=== PATIENT | male | born 1995 | race Caucasian/White ===

== ENCOUNTER 2017-04-11 12:16 | Emergency (ER) | payer OTHER ==
[2017-04-11 15:07] VITALS: BP 128/75
--- NOTE | 2017-04-11 17:01 | UC ---
Niles Vega Stephanie, scribed for Manuel Wheat MD on 04/11/17 at 1524 . General HPI - HPI Summary HPI Summary: The pt is a 21 y/o M presenting to with c/o decreased energy that began on . Symptoms include weight gain, body aches, nausea, sleep disturbances and blood in rectum with wiping. The pt reports GARCIA yesterday but is not experiencing a GARCIA today. Symptoms became worse last night. Pt denies fever and chills. - History of Current Complaint Chief Complaint: UCGeneralIllness Stated Complaint: TIRED HEADACHE Time Seen by Provider: 04/11/17 14:39 Hx Obtained From: Patient Onset/Duration: Lasting Weeks - 2, Still Present Pain Radiates to: none Aggravating: nothing Alleviating: nothing Associated Signs & Symptoms: Positive: Other - weight gain, body aches, nausea, sleep disturbances and blood in rectum with wiping. - Allergy/Home Medications Allergies/Adverse Reactions: Allergies Allergy/AdvReac Type Severity Reaction Status Date / Time No Known Allergies Allergy Verified 04/11/17 12:40 Home Medications: Home Medications Escitalopram (NF) [Lexapro 10 mg (NF)] 1 tab PO DAILY 04/11/17 [History Confirmed 04/11/17] Propranolol HCl [Propranolol HCl ER] 04/11/17 [History] PMH/Surg Hx/FS Hx/Imm Hx Previously Healthy: Yes Psychological History: Depression - Surgical History Surgical History: None - Family History Known Family History: Positive: Cardiac Disease - paternal, Diabetes - maternal , Other - hypothyroidism, depression, anxiety - Social History Occupation: Student Lives: Dormitory/Roommates Alcohol Use: Occasionally Substance Use Type: Marijuana Substance Use Comment - Amount & Last Used: once weekly Smoking Status (MU): Former Smoker - Immunization History Most Recent Influenza Vaccination: none Review of Systems Constitutional: Other - weight gain, decreased energy, sleep disturbances Skin: Negative Eyes: Negative ENT: Negative Respiratory: Negative Cardiovascular: Negative Gastrointestinal: Nausea, Other - blood on rectum Genitourinary: Negative Motor: Negative Neurovascular: Negative Musculoskeletal: Negative Neurological: Negative Psychological: Negative All Other Systems Reviewed And Are Negative: Yes Physical Exam Triage Information Reviewed: Yes Vital Signs: Initial Vital Signs Temp 98.8 F 04/11/17 12:34 Pulse 97 01/21/18 12:34 Resp 14 04/11/17 12:34 BP 122/81 04/11/17 12:34 Pulse Ox 98 04/11/17 12:34 Vital Signs Reviewed: Yes - Additional Comments General: well-appearing, no pain distress Skin: warm, color reflects adequate perfusion, dry Head: normal Eyes: EOMI, ADRIEL ENT: normal Neck: supple, nontender, thyroid nml. Respiratory: CTA, breath sounds present Cardiovascular: RRR Abdomen: soft, nontender Bowel: present Musculoskeletal: normal, strength/ROM intact Neurological: normal, sensory/motor intact, A&O x3 Psychological: affect/mood appropriate Course/Dx - Course Course Of Treatment: Medications reviewed. LABS ORDERED CRP, CBC, CMP, ESR, TSH , MONOSPOT. WILL F/U WITH [facility]. - Differential Dx - Multi-Symptom Provider Diagnoses: FATIGUE Discharge - Discharge Plan Condition: Stable Disposition: HOME Patient Education Materials: Fatigue (ED) Referrals: [facility] @ [facility] [Outside] No Primary Care Phys,[facility] [Primary Care Provider] - Additional Instructions: FOLLOW UP WITH YOUR DOCTOR. DISCUSS THE LAB RESULTS WITH YOUR DOCTOR AT [facility]. GET RECHECKED FOR ANY WORSENING OF YOUR CONDITION OR QUESTIONS OR CONCERNS. The documentation as recorded by the Niles aguayo Stephanie accurately reflects the service I personally performed and the decisions made by me, Manuel Wheat MD.
[2017-04-12 10:58] LABS: ABS Basophils 0 10^3/ul (0-0.2); ABS Eosinophils 0.1 10^3/ul (0-0.6); ABS Lymphocytes 1.7 10^3/ul (1.0-4.8); ABS Monocytes 0.4 10^3/ul (0-0.8); ABS Neutrophils 2.6 10^3/ul (1.5-7.7); ABS Nucleated RBC 0 10^3/ul; Eosinophil % 2.2 % (0-6); Hematocrit 48 % (42-52); Hemoglobin 16.3 g/dl (14.0-18.0); Mean Corpuscular HGB Conc 34 g/dl (31-36); Mean Corpuscular Hemoglobin 31 pg (27-31); Mean Corpuscular Volume 89 fL (80-94); Mean Platelet Volume 9 um3 (7.4-10.4); Nucleated Red Blood Cells % 0.3; Platelet Count 199 10^3/ul (150-450); Red Blood Count 5.35 10^6/ul (4.0-5.4); Red Cell Distribution Width 13 % (10.5-15); White Blood Count 4.9 10^3/ul (3.5-10.8)
[2017-04-12 11:41] LABS: EGFR Non-African American 99.9 (>60)
--- NOTE | 2017-04-12 17:07 | UC ---
- Progress Note Progress Note: Call patient let him know his TSH was slightly elevated , and his total bilirubin was elevated as well---assure he has made follow up arrangement with [facility]
== END 2017-04-11 15:05 | disposition home or self-care (01) ==
LOC: UCEAST 12:16
DX: R53.83 Other fatigue (principal); R63.5 Abnormal weight gain; M79.1 Myalgia; R11.0 Nausea; K62.5 Hemorrhage of anus and rectum; F32.9 Major depressive disorder, single episode, unspecified; F12.90 Cannabis use, unspecified, uncomplicated; Z87.891 Personal history of nicotine dependence
CPT/HCPCS: 36415; 80053; 84443; 85025; 85652; 86140; 86308; 86664; 86665; 99202; G0463

== ENCOUNTER 2017-05-25 13:55 | Emergency (ER) | payer BC ==
--- NOTE | 2017-05-25 14:10 | ED ---
Psychiatric Complaint - HPI Summary HPI Summary: 21 male presents to ED with complaints of feeling very depression, spiraling down, and some vague thoughts of suicide. States symptoms began to worsen the past week. States he has been suffering from depression since eighth grade however recently started on lexapro 20mg in December of 2016. States it has been working well until this past week. States he has had some increased stress with finishing his school work and "isn't the greatest student" States he has had decreased libido and no interest in doing anything. States he went to [employer] to "get away" but decided he had to come to the ER because he knew he was at his lowest point. No suicidal attempts or homicidal thoughts. Suicidal without plan. No other PMHx. No other complaints and feels well otherwise. Does see outpatient psychiatrist biweekly, however latest appointment got cancelled due to weather. No hallucinations or hearing things. No alcohol or drug use. Has been taking his medication appropriately. - History Of Current Complaint Chief Complaint: EDMentalHealth Time Seen by Provider: 05/25/17 14:04 Hx Obtained From: Patient Onset/Duration: Gradual Onset, Lasting Weeks, Still Present, Worse Since Timing: Constant Severity Initially: Moderate Severity Currently: Severe Character: Depressed Aggravating Factor(s): Recent Stress Alleviating Factor(s): Nothing Associated Signs And Symptoms: Positive: Sleep Disturbance, Appetite Change, Social Withdrawal Has Suicidal: Reports: Thoughts. Denies: With A Plan Has Homicidal: Denies: Thoughts, With A Plan Recent Stressor(s): school, [employer] student - Allergies/Home Medications Allergies/Adverse Reactions: Allergies Allergy/AdvReac Type Severity Reaction Status Date / Time No Known Allergies Allergy Verified 05/25/17 17:02 Home Medications: Home Medications Escitalopram (NF) [Lexapro 20 mg (NF)] 20 mg PO DAILY 05/25/17 [History Confirmed 05/25/17] diPHENhydraMINE PO* [Benadryl PO 25 MG TAB*] 50 mg PO BEDTIME PRN 05/25/17 [ History Confirmed 05/25/17] PMH/Surg Hx/FS Hx/Imm Hx Endocrine/Hematology History: Denies: Hx Anticoagulant Therapy, Hx Diabetes Cardiovascular History: Denies: Hx Hypertension Respiratory History: Denies: Hx Asthma - Surgical History Surgery Procedure, Year, and Place: n/a - Immunization History Immunizations Up to Date: Yes Infectious Disease History: No Infectious Disease History: Denies: Traveled Outside the [place] in Last 30 Days - Family History Known Family History: Positive: Cardiac Disease - paternal, Diabetes - maternal , Other - hypothyroidism, depression, anxiety - Social History Alcohol Use: Occasionally Substance Use Type: Reports: Marijuana Substance Use Comment - Amount & Last Used: once weekly Smoking Status (MU): Former Smoker Review of Systems Constitutional: Negative Cardiovascular: Negative Respiratory: Negative Neurological: Negative Positive: Depressed All Other Systems Reviewed And Are Negative: Yes Physical Exam Triage Information Reviewed: Yes Vital Signs On Initial Exam: Initial Vitals Temp Pulse Resp BP Pulse Ox 98.7 F 90 20 133/70 83 05/25/17 13:58 05/25/17 13:58 05/25/17 13:58 05/25/17 13:58 05/25/17 13:58 Vital Signs Reviewed: Yes Appearance: Positive: Well-Appearing, No Pain Distress, Well-Nourished Skin: Positive: Warm, Skin Color Reflects Adequate Perfusion, Dry. Negative: Cold, Numb, Cyanosis @, Pale, Erythema @ Head/Face: Positive: Normal Head/Face Inspection Eyes: Positive: Normal, EOMI, ADRIEL, Conjunctiva Clear ENT: Positive: Normal ENT inspection, Hearing grossly normal, Pharynx normal, TMs normal, Uvula midline Neck: Positive: Supple, Nontender Respiratory/Lung Sounds: Positive: Clear to Auscultation, Breath Sounds Present. Negative: Rales, Rhonchi, Wheezes Cardiovascular: Positive: Normal, RRR, Pulses are Symmetrical in both Upper and Lower Extremities. Negative: Murmur, Rub Abdomen Description: Positive: Nontender, Soft Bowel Sounds: Positive: Present Musculoskeletal: Positive: Normal, Strength/ROM Intact Neurological: Positive: Normal, Sensory/Motor Intact, Alert, Oriented to Person Place, Time Psychiatric: Positive: Depressed - Earl Coma Scale Best Eye Response: 4 - Spontaneous Best Motor Response: 6 - Obeys Commands Best Verbal Response: 5 - Oriented Coma Scale Total: 15 Diagnostics - Vital Signs Vital Signs Temp Pulse Resp BP Pulse Ox 05/25/17 13:58 98.7 F 90 20 133/70 83 - Laboratory Result Diagrams: 05/25/17 14:16 05/25/17 14:16 Lab Statement: Any lab studies that have been ordered have been reviewed, and results considered in the medical decision making process. Course/Dx - Course Course Of Treatment: appears to be suffering from increased depression, with some suicidal thoughts. labs and urinalysis obtained and unremarkable. did admit to cannabis use occasionally. no other complaints or concerns at this time. appears he may benefit from change in dose of lexapro as well as closer follow up outpatient as well as counceling. no other concerns. Spoke with Maximo and Willa SIEGEL to share information. Patient will be discharged home after being presented to Dr Nobles who has a safe plan to discharge to house [facility] and follow up with psych. Does not appear to be a high risk patient at this time. - Differential Dx/Clinical Impression Differential Diagnosis/HQI/PQRI: Positive: Anxiety, Depression, Suicidal Ideation Provider Diagnosis: Depression, Suicidal thoughts, Mental health problem - Physician Notifications Discussed Care Of Patient With: Willa Mata, Dr Nobles Time Discussed With Above Provider: 17:00 Patient Is Medically Stable For: Psych Evaluation Discharge - Discharge Plan Condition: Stable Disposition: HOME Referrals: [facility] [Primary Care Provider] - As Soon As Possible (We will be sending up a copy of the mental health evaluation. Please call to schedule an appointment to speak with your counselor as soon as possible.)
[2017-05-25 14:29] LABS: ABS Basophils 0.1 10^3/ul (0-0.2); ABS Eosinophils 0.1 10^3/ul (0-0.6); ABS Lymphocytes 1.7 10^3/ul (1.0-4.8); ABS Monocytes 0.4 10^3/ul (0-0.8); ABS Neutrophils 3.3 10^3/ul (1.5-7.7); ABS Nucleated RBC 0 10^3/ul; Eosinophil % 1.2 % (0-6); Hematocrit 50 % (42-52); Hemoglobin 17.4 g/dl (14.0-18.0); Lymphocyte % 29.9 % (25-47); Mean Corpuscular HGB Conc 35 g/dl (31-36); Mean Corpuscular Hemoglobin 31 pg (27-31); Mean Corpuscular Volume 89 fL (80-94); Mean Platelet Volume 8 um3 (7.4-10.4); Nucleated Red Blood Cells % 0.1; Platelet Count 196 10^3/ul (150-450); Red Blood Count 5.66 10^6/ul (4.0-5.4); Red Cell Distribution Width 13 % (10.5-15); White Blood Count 5.6 10^3/ul (3.5-10.8)
[2017-05-25 14:48] LABS: Urine Appearance Cloudy; Urine Blood Negative (Negative); Urine Color Yellow; Urine Ketones Negative (Negative); Urine Protein 1+(30 mg/dL) (Negative); Urine Specific Gravity 1.023 (1.010-1.030); Urine Urobilinogen Negative (Negative)
[2017-05-25 15:15] LABS: EGFR Non-African American 79.5 (>60)
[2017-05-25 17:38] VITALS: BP 140/66
== END 2017-05-25 17:41 | disposition home or self-care (01) ==
LOC: ED 13:55
DX: F32.9 Major depressive disorder, single episode, unspecified (principal); R45.851 Suicidal ideations; Z87.891 Personal history of nicotine dependence
CPT/HCPCS: 36415; 80053; 80307; 80320; 80329; 81003; 81015; 84443; 85025; 87086; 99285; G0480